=== PATIENT | female | born 1960 | race Caucasian/White ===

== ENCOUNTER → 2019-05-27 | Outpatient (CLI) | payer SELFPAY | LOC: RAD 14:43 | DX: M25.511 Pain in right shoulder (principal) ==

== ENCOUNTER → 2020-10-01 | Day surgery (SDC) | payer OTHER | END | disposition home or self-care (01) | LOC: MSO 09:11 | DX: D12.3 Benign neoplasm of transverse colon (principal); K21.9 Gastro-esophageal reflux disease without esophagitis; F41.9 Anxiety disorder, unspecified; F32.9 Major depressive disorder, single episode, unspecified; G25.81 Restless legs syndrome; Z79.899 Other long term (current) drug therapy | CPT/HCPCS: 00811; J2704; J3010; J7120 ==

== ENCOUNTER → 2021-07-23 | Outpatient (CLI) | payer OTHER ==
[2021-07-23 15:32] LABS: HEMATOCRIT 41.2 %; HEMOGLOBIN 13.6 g/dL; MEAN PLATELET VOLUME 9.7 fl; RED BLOOD COUNT 4.73 M/mm3; RED CELL DISTRIBUTION WIDTH 13.9 %; WHITE BLOOD COUNT 8.2 K/mm3
[2021-07-23 15:57] LABS: POTASSIUM 3.9 mmol/L (3.5-5.1)
[2021-07-23 15:58] LABS: CALCIUM 9.2 mg/dL
== END ==
LOC: LAB 15:16
PROVIDERS: Surgery
DX: R10.9 Unspecified abdominal pain (principal); R14.0 Abdominal distension (gaseous)

== ENCOUNTER → 2023-03-30 | Outpatient (CLI) | payer MEDICAID ==
[~2023-03-30] MED LIST: DESYREL DIVIDO150 M1 PO; GABAPENTIN TAB600 MG PO; ROPINIROLE HYD0.5 MG; SERTRALINE HYD100 MG PO
[2023-03-30 12:04] LABS: BASO # 0.03 K/mm3; EOS # 0.16 K/mm3; EOS % 2.5 %; HEMATOCRIT 44.7 %; HEMOGLOBIN 14.8 g/dL; LYMPH# 1.53 K/mm3; MEAN CELL VOLUME 92 fl; MEAN CORPUSCULAR HEMOGLOBIN 30 pg; MEAN CORPUSCULAR HGB CONC 33 g/dL; MEAN PLATELET VOLUME 10.1 fl; MONO # 0.41 K/mm3; NEU # 4.28 K/mm3; PLATELET COUNT 159 K/mm3; RED BLOOD COUNT 4.87 M/mm3; RED CELL DISTRIBUTION WIDTH 13.1 %; WHITE BLOOD COUNT 6.4 K/mm3
[2023-03-30 12:12] LABS: ALBUMIN 4.4 g/dL
[2023-03-30 12:13] LABS: CALCIUM 10.1 mg/dL
[2023-03-30 12:14] LABS: TOTAL PROTEIN 6.9 g/dL
[2023-03-30 12:16] LABS: TOTAL BILIRUBIN 0.3 mg/dL
== END ==
LOC: LAB 11:47
PROVIDERS: Internal Medicine
DX: D12.3 Benign neoplasm of transverse colon (principal); G25.81 Restless legs syndrome; F51.04 Psychophysiologic insomnia; G47.33 Obstructive sleep apnea (adult) (pediatric); K90.9 Intestinal malabsorption, unspecified; F32.1 Major depressive disorder, single episode, moderate; G91.2 (Idiopathic) normal pressure hydrocephalus; E78.2 Mixed hyperlipidemia; R41.3 Other amnesia

== ENCOUNTER → 2023-05-20 | Outpatient (CLI) | payer MEDICAID ==
[2023-05-20 16:36] LABS: BASO # 0.02 K/mm3; EOS # 0.18 K/mm3; EOS % 2.7 %; HEMATOCRIT 42.6 %; HEMOGLOBIN 14.1 g/dL; LYMPH# 1.95 K/mm3; MEAN CELL VOLUME 93 fl; MEAN CORPUSCULAR HEMOGLOBIN 31 pg; MEAN CORPUSCULAR HGB CONC 33 g/dL; MEAN PLATELET VOLUME 9.7 fl; NEU # 4.01 K/mm3; PLATELET COUNT 146 K/mm3; RED BLOOD COUNT 4.59 M/mm3; RED CELL DISTRIBUTION WIDTH 13.2 %; WHITE BLOOD COUNT 6.6 K/mm3
[2023-05-20 16:42] LABS: ALBUMIN 4.2 g/dL
[2023-05-20 16:45] LABS: TOTAL PROTEIN 5.9 g/dL
[2023-05-20 16:47] LABS: TOTAL BILIRUBIN 0.3 mg/dL
[2023-05-20 17:28] LABS: PH-URINE 5.5; URINE APPEARANCE CLOUDY; URINE BILIRUBIN NEGATIVE; URINE BLOOD NEGATIVE; URINE COLOR YELLOW; URINE GLUCOSE NEGATIVE; URINE KETONE NEGATIVE; URINE NITRATE NEGATIVE; URINE PROTEIN(semi-quant) NEGATIVE
[2023-05-20 17:29] LABS: URINE LEUKOCYTE ESTERASE 1+; URINE MUCUS PRESENT; URINE WBC 31-50 /hpf
== END ==
LOC: RAD 15:49
PROVIDERS: Nurse Practitioner Family
DX: R10.9 Unspecified abdominal pain (principal)

== ENCOUNTER → 2023-05-22 | Outpatient (CLI) | payer MEDICAID | LOC: LAB 11:23 | DX: R10.9 Unspecified abdominal pain (principal) ==

== ENCOUNTER → 2023-07-14 | Outpatient (CLI) | payer SELFPAY ==
[2023-07-14 12:36] LABS: BASO # 0.02 K/mm3; EOS # 0.14 K/mm3; EOS % 2.1 %; HEMATOCRIT 44.4 %; HEMOGLOBIN 14.5 g/dL; LYMPH# 1.55 K/mm3; MEAN CELL VOLUME 93 fl; MEAN CORPUSCULAR HEMOGLOBIN 30 pg; MEAN CORPUSCULAR HGB CONC 33 g/dL; MEAN PLATELET VOLUME 9.7 fl; MONO # 0.31 K/mm3; NEU # 4.58 K/mm3; PLATELET COUNT 159 K/mm3; WHITE BLOOD COUNT 6.6 K/mm3
[2023-07-14 12:37] LABS: ALBUMIN 4.5 g/dL
[2023-07-14 12:38] LABS: CALCIUM 9.9 mg/dL
[2023-07-14 12:40] LABS: TOTAL PROTEIN 6.7 g/dL
[2023-07-14 12:41] LABS: TOTAL BILIRUBIN 0.5 mg/dL
== END ==
LOC: LAB 11:59
PROVIDERS: Internal Medicine
DX: F32.1 Major depressive disorder, single episode, moderate (principal); K90.9 Intestinal malabsorption, unspecified; E78.2 Mixed hyperlipidemia

== ENCOUNTER → 2023-10-16 | Outpatient (CLI) | payer OTHER ==
[2023-10-16 11:50] LABS: BASO # 0.02 K/mm3; EOS # 0.22 K/mm3; EOS % 3.3 %; HEMATOCRIT 43.2 %; HEMOGLOBIN 14.5 g/dL; LYMPH# 1.38 K/mm3; MEAN CELL VOLUME 91 fl; MEAN CORPUSCULAR HEMOGLOBIN 31 pg; MEAN CORPUSCULAR HGB CONC 34 g/dL; MEAN PLATELET VOLUME 9.9 fl; MONO # 0.46 K/mm3; NEU # 4.62 K/mm3; PLATELET COUNT 150 K/mm3; RED BLOOD COUNT 4.75 M/mm3; RED CELL DISTRIBUTION WIDTH 13.1 %; WHITE BLOOD COUNT 6.7 K/mm3
[2023-10-16 11:56] LABS: ALBUMIN 4.5 g/dL
[2023-10-16 11:57] LABS: CALCIUM 9.6 mg/dL
[2023-10-16 11:59] LABS: TOTAL PROTEIN 6.6 g/dL
[2023-10-16 12:00] LABS: TOTAL BILIRUBIN 0.4 mg/dL
== END ==
LOC: LAB 11:30 → EDSEX 11:30
PROVIDERS: Internal Medicine
DX: F41.1 Generalized anxiety disorder (principal); F32.1 Major depressive disorder, single episode, moderate; K90.9 Intestinal malabsorption, unspecified; E78.2 Mixed hyperlipidemia

== ENCOUNTER → 2023-10-20 | Outpatient (CLI) | payer OTHER ==
[~2023-10-20] MED LIST changes: +Gadoterate 20 ML VIAL IV ONE
== END ==
LOC: RAD 12:55
DX: G91.2 (Idiopathic) normal pressure hydrocephalus (principal)
CPT/HCPCS: A9575